=== PATIENT | male | born 1940 | race Caucasian/White ===

== ENCOUNTER → 2017-05-24 | Outpatient (CLI) | payer OTHER ==
--- NOTE | 2017-05-24 10:15 | DIAGNOSTIC IMAGING REPORT ---
SINUSES WITH BRAIN LAB CLINICAL HISTORY: 77 years-old Male presenting with CHRONIC SINUSITIS. TECHNIQUE: Multidetector CT of the sinuses was performed without the use of intravenous contrast. IV contrast: None. A dose lowering technique was used consistent with the principles of ALARA (as low as reasonably achievable). COMPARISON: None. CT DOSE (mGy.cm): The estimated cumulative dose is 702.78 mGy.cm. FINDINGS: Blueprint [employer] topogram: Unremarkable. Minimal polypoid mucosal thickening in the right maxillary sinus. Near complete opacification of the left maxillary sinus with sclerotic thickened left maxillary sinus barrera. Remainder of paranasal sinuses and mastoid air cells clear. Bony nasal septum midline. Ana bullosa morphology of the bilateral middle turbinates. No dehiscence of the bony optic canals. The sphenoid sinuses demonstrate a greater degree of septation than usual. Right ostiomeatal unit patent. The left ostiomeatal unit is obstructed by the significant mucosal thickening and left maxillary sinus debris. Bilateral frontoethmoidal recesses patent. Limited intracranial evaluation within normal limits. Orbits normal. Remaining soft tissues of the face normal. Upper cervical spine with mild degenerative change. IMPRESSION: 1. Evidence of chronic sinusitis of the left maxillary sinus. Resulting obstruction of the left ostiomeatal unit. Electronically signed by: Clark Mccarthy M.D. 05/24/2017 10:14 AM Dictated Date/Time: 05/24/2017 10:09 AM
== END | disposition home or self-care (01) ==
LOC: C.CTS 09:55
PROVIDERS: ATTEND Otolaryngology
DX: J32.9 Chronic sinusitis, unspecified (principal)